=== PATIENT | female | born 1950 | race Caucasian/White ===

== ENCOUNTER 2018-07-03 15:59 | Emergency (ER) | payer MEDICARE, MEDICAID ==
[2018-07-03 16:07] VITALS: BMI 29.6
[2018-07-03 16:20] VITALS: RESP 18
[2018-07-03] MEDS ORDERED: Lidocaine 2% w Epi 1:100,000 Inj IJ ONE (16:47)
[2018-07-03] MEDS ORDERED: Bacitracin 500 Units/gm Oint Foilpak UD TOP ONE (17:23)
--- NOTE | 2018-07-03 18:19 | C.PDOC ---
History Of Present Illness 68-year-old female presents to the ED for evaluation after having a seizure prior to arrival. Patient reports a laceration to her left occipital area. Patient states she has not taken her Lamictal and Keppra for 3 days because she ran out. Patient has been trying to reach her PMD without success, since he is on vacation. Patient denies urinary/bowel incontinence or extremity numbness/weakness. Time Seen by Provider: 07/03/18 16:10 Chief Complaint (Nursing): Seizure History Per: Patient History/Exam Limitations: no limitations Number Of Seizures: One Precipitating Factor(s): Missed Dose Of Anti-seizure Medication Past Medical History Reviewed: Historical Data, Nursing Documentation, Vital Signs Vital Signs: Last Vital Signs Temp 98.9 F 07/03/18 16:07 Pulse 89 07/03/18 16:07 Resp 18 07/03/18 16:07 BP 147/78 07/03/18 16:07 Pulse Ox 96 07/03/18 16:07 Primary Care Provider: Vince Gordon - Medical History PMH: Anxiety (clonazepam 0.5mg bid), Malignancy, Seizures (seizure episode 2 yea rs ago) Surgical History: No Surg Hx Family History: States: Unknown Family Hx - Social History Hx Tobacco Use: No Hx Alcohol Use: No Hx Substance Use: No - Immunization History Hx Tetanus Toxoid Vaccination: No Hx Influenza Vaccination: No Hx Pneumococcal Vaccination: No Review Of Systems Genitourinary: Negative for: Incontinence Skin: Positive for: Other (laceration to left occipital area ) Neurological: Positive for: Seizures. Negative for: Weakness, Numbness Physical Exam - Physical Exam Appears: Non-toxic, No Acute Distress, Other ( female ) Skin: Normal Color, Warm, Dry Head: Laceration (4cm, through subcutaneous tissue in left temporo-occipital region ) Eye(s): bilateral: Normal Inspection, PERRL, EOMI Ear(s): Bilateral: Normal Nose: Normal, No Deformity, No Tenderness Oral Mucosa: Moist Neck: Supple Chest: Symmetrical, No Deformity, No Tenderness Cardiovascular: Rhythm Regular, No Murmur Respiratory: Normal Breath Sounds, No Rales, No Rhonchi, No Wheezing Extremity: Normal ROM, Capillary Refill (less than 2 seconds ) Neurological/Psych: Oriented x3, Normal Speech, Normal Cognition ED Course And Treatment O2 Sat by Pulse Oximetry: 96 (on RA) Pulse Ox Interpretation: Normal Progress Note: CT Head and EKG ordered and reviewed. Keppra PO, Motrin PO and Bacitracin TOP applied. Laceration repair was performed by me, see note. Patient tolerated well with no complications. Laceration - Laceration Repair left temporo-occipital region Wound Length (In cm): 4 Description Of Wound: Linear Anesthesia: Lidocaine 1% Wound Examination: Irrigated With Saline, No FB With Wound Exploration, No Tendon Injury With Wound Exploration Wound Closure: [place] (6) Wound Complexity: Simple Medical Decision Making Medical Decision Making: typical seizure and scalp lac off anti-seizure meds x 3 days Disposition Doctor Will See Patient In The: Office Counseled Patient/Family Regarding: Studies Performed, Diagnosis - Disposition Disposition: HOME/ ROUTINE Disposition Time: 18:40 Condition: GOOD Forms: [facility] (Pashto) - Clinical Impression Clinical Impression: Tonic-clonic seizure, Scalp laceration - Scribe Statement The provider has reviewed the documentation as recorded by the Scribe (Saritha Cortez) Provider Attestation: All medical record entries made by the Scribe were at my direction and personally dictated by me. I have reviewed the chart and agree that the record accurately reflects my personal performance of the history, physical exam, medi glenda decision making, and the department course for this patient. I have also personally directed, reviewed, and agree with the discharge instructions and disposition.
[2018-07-03 18:31] VITALS: BP 142/74; PULSE 82; TEMP 98.8
[2018-07-03 18:40] VITALS: O2SAT 96
--- NOTE | 2018-07-04 08:21 | CT ---
Date of service: 07/03/2018 PROCEDURE: CT HEAD WITHOUT CONTRAST. HISTORY: seizure, L occ contusion/lac COMPARISON: 01/21/2018 TECHNIQUE: Axial computed tomography images were obtained through the head/brain without intravenous contrast. Radiation dose: Total exam DLP = 1036.63 mGy-cm. This CT exam was performed using one or more of the following dose reduction techniques: Automated exposure control, adjustment of the mA and/or kV according to patient size, and/or use of iterative reconstruction technique. FINDINGS: HEMORRHAGE: No intracranial hemorrhage. BRAIN: There is a right frontal suprasellar mass with diffuse calcification, more prominent in the periphery. Differential diagnosis includes meningioma or craniopharyngioma. It measures 2.2 cm in greatest dimension unchanged from the previous examination. There is no surrounding vasogenic edema. There is minimal mass-effect upon the 3rd ventricle, displaced towards the left by several mm. There is no other intracranial mass. There is minimal atrophy. There is minimal periventricular white matter lucency consistent with chronic microvascular ischemic change. There is some right frontal encephalomalacia change possibly related to prior right frontotemporal craniotomy. VENTRICLES: No hydrocephalus. CALVARIUM: Right frontotemporal craniotomy. PARANASAL SINUSES: Unremarkable as visualized. No significant inflammatory changes. MASTOID AIR CELLS: Unremarkable as visualized. No inflammatory changes. OTHER FINDINGS: Old depressed left lamina papyracea fracture. 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 Status post right frontotemporal craniotomy. Mild right frontal encephalomalacia change deep to the craniotomy site. No vasogenic edema. Subtle shift of the 3rd ventricle towards the left side as a result of this meningioma is unchanged from prior examination. The preliminary findings for this examination were reported by [facility] at 8:26 p.m. on 07/03/2018. There is concurrence of this report with the preliminary findings.
--- NOTE | 2018-07-04 12:12 | CARD ---
APPROVED REPORT Date of service: 07/03/2018 EKG Measurement Heart [id number] <Conclusion> Normal sinus rhythm Minimal voltage criteria for LVH, may be normal variant Borderline ECG
== END 2018-07-03 19:01 | disposition home or self-care (01) ==
LOC: C.ER 15:59
DX: G40.409 Other generalized epilepsy and epileptic syndromes, not intractable, without status epilepticus (principal); S01.01XA Laceration without foreign body of scalp, initial encounter; X58.XXXA Exposure to other specified factors, initial encounter

== ENCOUNTER 2018-07-10 15:42 | Emergency (ER) | payer MEDICARE, MEDICAID ==
[2018-07-10 15:42] VITALS: BMI 29.6
[2018-07-10 15:46] VITALS: BP 128/80; PULSE 74; TEMP 98.7; O2SAT 96
--- NOTE | 2018-07-10 16:14 | C.PDOC ---
History Of Present Illness 68 year old female presents to ED for staple removal from the the scalp. Patient was previously seen on 07/05 for scalp laceration following seizure. She denies bleeding, discharge, numbness, or weakness. Time Seen by Provider: 07/10/18 15:48 Chief Complaint (Nursing): Suture/Staple Removal History Per: Patient History/Exam Limitations: no limitations Onset/Duration Of Symptoms: Laceration (staple removal ) Current Symptoms Are (Timing): Still Present Location Of Injury: Left: Head (marissa) Quality Of Symptoms: denies: Painful, Itching, Swollen Past Medical History Reviewed: Historical Data, Nursing Documentation, Vital Signs Vital Signs: Last Vital Signs Temp 98.7 F 07/10/18 15:43 Pulse 74 07/10/18 15:43 Resp 16 07/10/18 15:43 BP 128/80 07/10/18 15:43 Pulse Ox 96 07/10/18 15:43 Primary Care Provider: Vicne Gordon - Medical History PMH: Anxiety (clonazepam 0.5mg bid), Malignancy, Seizures (seizure episode 2 years ago) Surgical History: No Surg Hx Family History: States: Unknown Family Hx - Social History Hx Tobacco Use: No Hx Alcohol Use: No Hx Substance Use: No - Immunization History Hx Tetanus Toxoid Vaccination: No Hx Influenza Vaccination: No Hx Pneumococcal Vaccination: No Review Of Systems Constitutional: Negative for: Fever, Chills, Weakness Skin: Positive for: Other (marissa to the left scalp). Negative for: Rash Neurological: Negative for: Weakness, Numbness, Headache Physical Exam - Physical Exam Appears: Well, Non-toxic, No Acute Distress Skin: Normal Color, Warm, Dry Head: Laceration (well adhered laceration to the left scalp with crusting at the borders , no bleeding, no swelling, no ecchymosis,) Eye(s): bilateral: Normal Inspection, PERRL, EOMI Ear(s): Bilateral: Normal Oral Mucosa: Moist Throat: Normal, No Erythema, No Exudate Neck: Normal ROM, Supple Chest: Symmetrical Neurological/Psych: Oriented x3, Normal Speech, Normal Cognition ED Course And Treatment O2 Sat by Pulse Oximetry: 96 (in RA) Pulse Ox Interpretation: Normal Medical Decision Making Medical Decision Makin marissa removed by me. Patient tolerated procedure well. No active bleeding. Patient discharged home. Disposition - Disposition Disposition: HOME/ ROUTINE Disposition Time: 16:11 Condition: GOOD Additional Instructions: You had 6 marissa removed from your scalp. Your cut is healing well, there is a small scab there. Do not pick at the scab, it will fall off on its own. You may shower, but avoid irritating the area aggressively. Forms: [employer] (Romanian) - Clinical Impression Clinical Impression: Removal of marissa - PA / NEONATAL SURGEON / Resident Statement MD/DO has reviewed & agrees with the documentation as recorded. (Yadi Vega) - Scribe Statement The provider has reviewed the documentation as recorded by the Scribe (Yadi Vega) All medical record entries made by the Scribe were at my direction and personally dictated by me. I have reviewed the chart and agree that the record accurately reflects my personal performance of the history, physical exam, medical decision making, and the department course for this patient. I have also personally directed, reviewed, and agree with the discharge instructions and disposition.
[2018-07-10 16:19] VITALS: RESP 18
== END 2018-07-10 16:21 | disposition home or self-care (01) ==
LOC: C.ER 15:42
DX: Z48.02 Encounter for removal of sutures (principal)